=== PATIENT | female | born 2000 | race Caucasian/White ===

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

== ENCOUNTER 2022-01-06 09:17 | Emergency (ER) | payer MEDICAID, SELFPAY ==
[2022-01-06 09:18] VITALS: BP 135/85; PULSE 95; RESP 18; TEMP 36.1; O2SAT 100; BMI 24.2
--- NOTE | 2022-01-06 10:49 | US_ITS ---
STUDY: SECOND AND THIRD TRIMESTER OBSTETRICAL ULTRASOUND REASON FOR EXAM: Female, 21 years old BLEEDING 2nd trimester LMP: 09/15/2021. TECHNIQUE: Transabdominal and Transvaginal TECHNICAL QUALITY: Adequate. PRIOR ULTRASOUND: Comparison is made with prior study of 11/07/2021. FINDINGS: There is a single intrauterine fetus. The fetus is in a cephalic presentation. There is demonstrated cardiac activity with a heart rate of 135 bpm. There is a normal amniotic fluid volume. The largest amniotic fluid pocket measures 4.4 cm x 3.7 cm. The amniotic fluid index (NICHOLAS) is within normal limits. The placenta is fundal and posterior in location. There are Grade 0 placental changes. The cervix measures 4.0 cm in length. The adnexal regions are not visualized. BIOMETRY: BPD: 3.3 cm: 16 weeks, 1 days HC: 11.7 cm: 15 weeks, 5 days AC: 10.04 cm: 16 weeks, 0 days FL: 1.75 cm: 15 weeks, 1 days CI: 85% FL/BPD: 53% FL/HC: FL/AC: 17% HC/AC: 1.17 age by current US: 15 weeks, 4 days. SETH by current US: 06/26/2022. Estimated weight: 133 grams, +/- 20 grams, 18 %. age by prior US: 15 weeks, 3 days. SETH by prior US: 06/27/2022. Age by LMP: 16 weeks, 1 days. SETH by LMP: 06/22/2022. IMPRESSION: Single live uterine gestation with a mean gestational age of 15 weeks and 3 days. The measurements obtained today following within the normal expected range. Electronically Signed: Jonh Tatum MD at 12:18 EDT , STUDY: FIRST TRIMESTER OBSTETRICAL ULTRASOUND REASON FOR EXAM: Female, 21 years old BLEEDING 2nd trimester LMP: 09/15/2021. TECHNIQUE: Transvaginal TECHNICAL QUALITY: Adequate. PRIOR ULTRASOUND: None. FINDINGS: Cervical length measures 4 cm. US/OB Limited With Biometrics IMPRESSION: Cervical length measures 4 cm. Electronically Signed: Jonh Tatum MD at 12:19 EDT ,
--- NOTE | 2022-01-06 10:50 | ED.VIS.FEGU ---
HPI HPI - Female History of Present Illness Chief Complaint: Vag Bld, Preg Informant: patient and parent Narrative Narrative: 21-year-old female G1, P0 at 16 weeks presenting to the emergency department with nausea and vaginal bleeding. Patient notes a headache for the past couple days. She states that she is currently following obstetrically with Dr. Matthew. She states this morning she had dark red bleeding vaginally. She notes some mild abdominal cramping. She states that she has previously had a normal intrauterine . She denies any fevers or vaginal discharge other than blood. She denies any urinary symptoms. No vision changes. No seizures. She describes the headache as frontal in nature. PFSH PFSH Medical History no medical history no medical history Home Medications multivitamin no.47-iron fum 27 mg-folate no.1 1 mg-dha 300 mg capsule (PNV-DHA) cap PO 11/12/21 [History Last Taken Unknown] ondansetron 4 mg disintegrating tablet 4 mg PO Q4H PRN nausea and vomiting #60 tabs 11/18/21 [Rx Last Taken Unknown] promethazine 12.5 mg tablet 12.5 mg PO Q6H PRN nausea and vomiting #30 tabs 11/25/21 [Rx Last Taken Unknown] Allergy/AdvReac Type Severity Reaction Status Date / Time No Known Allergies Allergy Verified 01/06/22 09:17 Surgical History no surgical history no surgical history Social History adopted: No household members: other details: Mother housing: house current occupational status: employed current occupation: [employer] [place] current occupational exposures/hazards: Yes pets and animals: Yes (Not managing litterbox) pets and animals: cat(s) history of recent travel: No sexually active: Yes Smoking Status: Never smoker alcohol intake: never substance use type: does not use well-balanced diet: rarely or never caffeine: No eating out: 4 or more times/week during the past year weight has: decreased > 10 lbs what type of physical activity do you participate in: walking frequency: daily luigi/denominational: Jewish seatbelt use: always do you feel safe at home: Yes additional social history: MARIA C Campbell ROS ROS ED Constitutional Constitutional ED: Denies chills or weight loss Eyes Eyes: Denies change in vision or diplopia ENT ENT ED: Denies ear pain, rhinorrhea or sore throat Cardiovascular Cardiovascular: Denies chest pain, orthopnea, palpitations or racing heartbeat Respiratory/Chest Respiratory/Chest: Denies cough, dyspnea or orthopnea Gastrointestinal Gastrointestinal: Denies abdominal pain, diarrhea, nausea or vomiting Genitourinary Genitourinary ED: Reports other Details: Vaginal bleeding vaginal cramping ; Denies dysuria, hematuria or urinary frequency Musculoskeletal Musculoskeletal: Denies arthralgias or myalgias Integumentary Denies abscess or rash Neurologic Neurologic: Denies headache(s) or weakness Psychiatric Psychiatric: Denies anxiety, depression, suicidal ideation or suicidal thoughts Endocrine Endocrinology: Denies polydipsia, polyphagia or polyuria Allergic/Immunologic Allergic/Immunologic ED: Denies mouth swelling, tongue swelling or urticaria EXAM Physical Exam Const Vital Signs: 01/06/22 09:18 01/06/22 11:22 Temperature 97.0 F L Temperature Source Temporal Pulse Rate 95 Respiratory Rate 18 16 Blood Pressure 135/85 H Blood Pressure Mean 101 Pulse Ox 100 Oxygen Delivery Method Room Air Positive well nourished and well developed General Appearance ED: well developed HEENT Reports normocephalic, head/scalp atraumatic and moist mucous membranes Eyes PERRL and EOMs intact bilaterally Neck no lymphadenopathy, supple and no JVD Resp normal respiratory effort and clear to auscultation bilaterally Cardio regular rate, regular rhythm and no murmurs GI normal to inspection, nondistended, normoactive bowel sounds and non-tender Palpation: soft Back/Spine no CVA tenderness and normal ROM Extremity normal to inspection General Extremety ED: Negative for edema General Extremity: Negative for edema Neuro oriented x3 and CN's II-XII intact bilaterally Sensorium / Orientation: alert Motor Exam: strength 5/5 throughout Psych mental status grossly normal Mood & Affect: Negative for depressed or tearful Skin no rashes or lesions noted and no wounds MDM MDM MDM Narrative Medical decision making narrative: Basic blood work was obtained and was negative. She is positive. Like ultrasound was obtained and shows a single live intrauterine . Urinalysis shows 3+ bacteria 5-10 white cells. She is asymptomatic in this will be sent for culture. This point patient be discharged home on pelvic rest. Instructions to follow-up with primary care return if worsening or concerns Lab Data Attestation: I reviewed the patient's lab results. Labs: Laboratory Results - last 24 hr 01/06/22 01/06/22 01/06/22 11:01 11:01 11:01 WBC 10.9 RBC 4.36 Hgb 13.9 Hct 41.6 MCV 95.4 MCH 31.9 MCHC 33.4 RDW Std Deviation 47.0 H RDW Coeff of Javier 13.4 Plt Count 236 MPV 10.5 Immature Gran % (Auto) 0.500 Neut % (Auto) 69.6 Lymph % (Auto) 22.0 Sherman % (Auto) 5.9 Eos % (Auto) 1.6 Baso % (Auto) 0.4 Absolute Neuts (auto) 7.6 Absolute Lymphs (auto) 2.40 Nucleated RBC % 0 Sodium 139 Potassium 4.4 Chloride 106 Carbon Dioxide 27.0 Anion Gap 6 BUN 6 L Creatinine 0.60 Estim Creat Clear Calc 124.75 Est GFR (MDRD) Af Amer 167 Est GFR (MDRD) Non-Af 138 BUN/Creatinine Ratio 10.1 Glucose 80 Calcium 9.1 Total Bilirubin 0.50 AST 24 ALT 22 Alkaline Phosphatase 65 Total Protein 7.4 Albumin 3.1 L Globulin 4.3 H Albumin/Globulin Ratio 0.7 L Urine Color Urine Clarity Urine pH Ur Specific [place] Urine Protein Urine Glucose (UA) Urine Ketones Urine Occult Blood Urine Nitrite Urine Bilirubin Urine Urobilinogen Ur Leukocyte Esterase Urine RBC Urine WBC Ur Squamous Epith Cells Urine Bacteria Urine Mucus Blood Type O POSITIVE 01/06/22 11:01 WBC RBC Hgb Hct MCV MCH MCHC RDW Std Deviation RDW Coeff of Javier Plt Count MPV Immature Gran % (Auto) Neut % (Auto) Lymph % (Auto) Sherman % (Auto) Eos % (Auto) Baso % (Auto) Absolute Neuts (auto) Absolute Lymphs (auto) Nucleated RBC % Sodium Potassium Chloride Carbon Dioxide Anion Gap BUN Creatinine Estim Creat Clear Calc Est GFR (MDRD) Af Amer Est GFR (MDRD) Non-Af BUN/Creatinine Ratio Glucose Calcium Total Bilirubin AST ALT Alkaline Phosphatase Total Protein Albumin Globulin Albumin/Globulin Ratio Urine Color Yellow Urine Clarity Sl. Cloudy Urine pH 8.0 Ur Specific [place] 1.015 Urine Protein 15 H Urine Glucose (UA) Normal Urine Ketones Negative Urine Occult Blood 50 H Urine Nitrite Negative Urine Bilirubin Negative Urine Urobilinogen Normal Ur Leukocyte Esterase 25 H Urine RBC 0-5 SEEN Urine WBC 5-10 SEEN Ur Squamous Epith Cells 0-5 SEEN Urine Bacteria 3+ Urine Mucus 0 SEEN Blood Type Radiography Diagnostic Testing: Clinical Impression(s) from Imaging Studies Obstetrics Ultrasound 01/06/22 10:49 IMPRESSION: Cervical length measures 4 cm. Electronically Signed: Jonh Tatum MD at 12:19 EDT , Discharge Plan Triage Chief Complaint: Vag Bld, Preg ED Provider: Shahid Hull Dx/Rx/DC Orders Clinical Impression: Vaginal bleeding before 22 weeks gestation, Second trimester Instructions: 2nd Trimester Changes Prescriptions: No Action PNV-DHA 27 mg iron-1 mg -300 mg capsule PO ondansetron 4 mg tablet,disintegrating 4 mg PO Q4H PRN (Reason: nausea and vomiting) Qty: 60 2RF promethazine 12.5 mg tablet 12.5 mg PO Q6H PRN (Reason: nausea and vomiting) Qty: 30 2RF Primary Care Provider: Julianna Thompson Referrals: Julianna Thompson MD [Primary Care Provider] - Activity Restrictions/Additional Instructions: Please follow-up with your braze operator. Disposition Disposition: Home, Self Care
[2022-01-06 11:08] LABS: Absolute Neutrophil Count 7.6 X10^3/uL (2.0-7.7); Basophil# 0.04 X10^3/uL; Basophil% 0.4 % (0-1); Eosinophil# 0.17 X10^3/uL; Eosinophils% 1.6 % (0-5); Hematocrit 41.6 % (37-47); Hemoglobin 13.9 g/dL (12.0-15.0); Mean Corp Hgb Conc 33.4 g/dL (32-36); Mean Corpuscular Hgb 31.9 pg (27.0-32.0); Mean Corpuscular Volume 95.4 fL (81-99); Mean Platelet Vol. 10.5 fl (6.2-12.0); Monocyte# 0.64 X10^3/uL; Monocyte% 5.9 % (0-10); NRBC Flagged by Analyzer 0 % (0-5); Neutrophil # 7.62 X10^3/uL (2.7-7.7); Neutrophil % 69.6 % (47-70); Platelet Count 236 K/mm3 (150-450); RBC Distribution Width CV 13.4 % (11.6-14.6); Red Blood Count 4.36 M/mm3 (4.2-5.4); White Blood Count 10.9 K/mm3 (4.4-11.0)
[2022-01-06 11:09] LABS: Color, Urine Yellow (Yellow); Glucose, Dipstick Normal (Normal); Ketone-Dipstick Negative (Negative); Leukocyte Esterase-Dipstick 25 /ul (Negative); Mucous, Urine 0 SEEN /hpf (<or=2+); Nitrite-Dipstick Negative (Negative); Occult Blood-Urine 50 /ul (Negative); Protein-Dipstick 15 mg/dl (Negative); Specific Gravity, Urine 1.015 (1.002-1.030); Urine Bilirubin Dipstick Negative (Negative); Urine Clarity Sl. Cloudy (Clear); Urine Urobilinogen Normal (Normal)
[2022-01-06 11:15] LABS: Bacteria 3+ /hpf (None Seen); Red Blood Cells-Urine 0-5 SEEN /hpf (0-5); Squamous Epithelial Cells - UA 0-5 SEEN /hpf (5-10); White Blood Cells 5-10 SEEN /hpf (0-5)
[2022-01-06 11:22] VITALS: RESP 16
[2022-01-06 11:35] LABS: ALB/GLOB Ratio 0.7 RATIO (0.9-2.4); AST(SGOT) 24 U/L (15-37); Alanine Aminotransfer ALT/SGPT 22 U/L (13-56); Albumin, Serum 3.1 g/dL (3.2-5.0); Alkaline Phosphatase 65 U/L (45-117); Anion Gap 6 (5-15); BUN 6 mg/dL (7-18); BUN/Creat Ratio 10.1 RATIO (10-20); Calcium,Total 9.1 mg/dL (8.5-10.1); Chloride 106 mmol/L (98-107); EST Glomerular Filtration Rate 138 mL/min (>60); Est Glom Filt Rate - Afr Amer 167 mL/min (>60); Estimated Creatinine Clearance 124.75 ml/min; Globulin 4.3 g/dL (2.2-4.2); Glucose 80 mg/dL (74-106); Potassium 4.4 mmol/L (3.5-5.1); Protein, Total 7.4 g/dL (6.4-8.2); Sodium Level 139 mmol/L (136-145)
== END 2022-01-06 12:59 | disposition home or self-care (01) ==
PROVIDERS: Emergency Provider Emergency Medicine; PCP Pediatrics; Visit Provider Emergency Medicine
DX: O20.9 Hemorrhage in early pregnancy, unspecified (principal); O99.891 Other specified diseases and conditions complicating pregnancy; R11.0 Nausea; Z3A.16 16 weeks gestation of pregnancy
CPT/HCPCS: 76816; 76817; 80053; 81001; 85025; 86900; 86901; 87086; 87088; 99282; A4216

== ENCOUNTER 2022-01-10 22:57 | Emergency (ER) | payer MEDICAID, SELFPAY ==
[2022-01-10 22:57] VITALS: BP 114/70; BP 131/70; PULSE 70; PULSE 88; RESP 16; RESP 21; TEMP 36.6; O2SAT 98; BMI 23.0
--- NOTE | 2022-01-10 23:34 | EKG12_ITS ---
Test Reason : DYSRHYTHMIA Blood Pressure : / mmHG Vent. Rate : 077 BPM Atrial Rate : 077 BPM P-R Int : 126 ms QRS Dur : 092 ms QT Int : 384 ms P-R-T Axes : 027 027 043 degrees QTc Int : 434 ms Normal sinus rhythm Normal ECG Confirmed by BHUPINDER HASKINS, SADE ([id number]), newspaper or periodical editor KIM JIMENEZ ([id number]) on 01/12/2022 9:33:51 AM Referred By: PL Confirmed By:SADE ROE MD
--- NOTE | 2022-01-10 23:37 | EX.ED.DYSGE1 ---
HPI History of Present Illness Chief Complaint: Alt LOC Informant: patient, spouse/S.O. and friend Narrative Narrative: History is from patient significant other and friend. Evidently patient was out of the bonfire type event this evening. She seemed to be staring into space. Her boyfriend tapped her. She then leaned forward fell onto the ground and curled up in a ball and was real tight. It does not sound like she had tonic-clonic activity but was just curled up in a ball tightly. She would then relax. She would answer simple questions and go back into this. She did this several times. She now just feels tired. She denies injury. She evidently has had these episodes since she was 9 years old. They occur probably at least twice a month or more. It sounds like she has had evaluation by neurology in the past but she does not remember any details. She was due to have a neurology appointment not long ago but it was canceled when they found out she was . She has never actually been diagnosed with seizures or seizure meds. Her significant other has been with her for 7 months. He states he has had her in the ER at least a dozen times for this with no answers. She has had multiple images done at other hospitals. Other than being tired she feels back to baseline. She is not having lower abdominal pain. She had some spotting before and was seen recently but is not having that now. No headaches now. PFSH PFSH Home Medications multivitamin no.47-iron fum 27 mg-folate no.1 1 mg-dha 300 mg capsule (PNV-DHA) cap PO 11/12/21 [History Last Taken Unknown] ondansetron 4 mg disintegrating tablet 4 mg PO Q4H PRN nausea and vomiting #60 tabs 11/18/21 [Rx Last Taken Unknown] promethazine 12.5 mg tablet 12.5 mg PO Q6H PRN nausea and vomiting #30 tabs 11/25/21 [Rx Last Taken Unknown] Allergy/AdvReac Type Severity Reaction Status Date / Time No Known Allergies Allergy Verified 01/10/22 23:00 Social History adopted: No household members: other details: Mother housing: house current occupational status: employed current occupation: [employer] current occupational exposures/hazards: Yes pets and animals: Yes (Not managing litterbox) pets and animals: cat(s) history of recent travel: No sexually active: Yes Smoking Status: Never smoker alcohol intake: never substance use type: does not use well-balanced diet: rarely or never caffeine: No eating out: 4 or more times/week during the past year weight has: decreased > 10 lbs what type of physical activity do you participate in: walking frequency: daily luigi/scientologist: Jehovah'S Witness seatbelt use: always do you feel safe at home: Yes additional social history: MARIA C Campbell ROS ROS ED Constitutional Constitutional ED: Denies chills or fever(s) Eyes Eyes: Denies change in vision or diplopia ENT ENT ED: Denies rhinorrhea or sore throat Cardiovascular Cardiovascular: Denies chest pain or palpitations Respiratory/Chest Respiratory/Chest: Denies cough or dyspnea Gastrointestinal Gastrointestinal: Denies abdominal pain, nausea or vomiting Genitourinary Genitourinary ED: Denies dysuria or hematuria Musculoskeletal Musculoskeletal: Denies myalgias Integumentary Denies rash Neurologic Neurologic: Reports other Details: See history of present illness. ; Denies headache(s) Psychiatric Psychiatric: Reports anxiety Endocrine Endocrinology: Denies polydipsia or polyuria Hematologic/Lymphatic Hematologic/Lymphatic: Denies easy bleeding or easy bruising Allergic/Immunologic Allergic/Immunologic ED: Denies urticaria EXAM Physical Exam Const Vital Signs: 01/10/22 22:57 01/10/22 22:57 01/11/22 00:31 Temperature 97.8 F Temperature Source Temporal Pulse Rate 88 70 Respiratory Rate 16 21 H Respiratory Effort Normal Non-Labored Respiratory Pattern Normal Blood Pressure 131/70 H 114/70 Blood Pressure Mean 90 84 Pulse Ox 98 98 Oxygen Delivery Method Room Air Room Air 01/11/22 00:48 Temperature Temperature Source Pulse Rate 74 Respiratory Rate 17 Respiratory Effort Respiratory Pattern Blood Pressure 113/76 Blood Pressure Mean 88 Pulse Ox 96 Oxygen Delivery Method Room Air Positive well nourished and well developed General Appearance ED: well developed and NAD; Negative for pallor HEENT Reports moist mucous membranes Eyes PERRL and EOMs intact bilaterally General Eye ED: Negative for pale conjunctiva or scleral icterus Neck no lymphadenopathy Chest Wall inspection of chest normal Resp normal respiratory effort and clear to auscultation bilaterally Cardio regular rate, regular rhythm and no murmurs GI normal to inspection, nondistended, normoactive bowel sounds and non-tender Back/Spine no CVA tenderness Extremity normal to inspection General Extremety ED: Negative for edema or tenderness General Extremity: Negative for edema Neuro oriented x3, CN's II-XII intact bilaterally and no sensory deficits noted Neuro Narrative: Normal reflexes. Sensorium / Orientation: alert; Negative for orientation impaired, lethargic or stuporous Sensory Exam: No sensory level loss detected Motor Exam: strength 5/5 throughout; Negative for general weakness or strength abnormal Psych mental status grossly normal Skin no rashes or lesions noted General Skin Exam: Negative for jaundice or pallor MDM MDM MDM Narrative Medical decision making narrative: Patient CBC shows no marked abnormalities. Urine shows no sign of infection. Tox is negative alcohol is negative electrolytes are normal. Liver function test show no acute abnormalities. Lactate is just at high end of normal. Patient's recheck. She is asymptomatic. She has had these symptoms for about 12 years. She has them a couple times or so a month. This is resolved. Neurology follow-up is appropriate. She has a neurologist to see but they want to wait until after she has delivered. We discussed reasons to return. Lab Data Attestation: I reviewed the patient's lab results. Labs: Laboratory Results - last 24 hr 01/10/22 01/10/22 01/10/22 00:20 00:20 23:57 WBC 10.6 RBC 3.95 L Hgb 12.6 Hct 36.5 L MCV 92.4 MCH 31.9 MCHC 34.5 RDW Std Deviation 44.9 H RDW Coeff of Javier 13.3 Plt Count 203 MPV 10.0 Immature Gran % (Auto) 0.400 Neut % (Auto) 62.1 Lymph % (Auto) 26.2 Becker % (Auto) 9.0 Eos % (Auto) 1.8 Baso % (Auto) 0.5 Absolute Neuts (auto) 6.6 Absolute Lymphs (auto) 2.77 Nucleated RBC % 0 Sodium Potassium Chloride Carbon Dioxide Anion Gap BUN Creatinine Estim Creat Clear Calc Est GFR (MDRD) Af Amer Est GFR (MDRD) Non-Af BUN/Creatinine Ratio Glucose Lactic Acid Calcium Magnesium Total Bilirubin AST ALT Alkaline Phosphatase Total Protein Albumin Globulin Albumin/Globulin Ratio Urine Color Yellow Urine Clarity Clear Urine pH 7.0 Ur Specific [place] 1.015 Urine Protein Negative Urine Glucose (UA) Normal Urine Ketones Negative Urine Occult Blood Negative Urine Nitrite Negative Urine Bilirubin Negative Urine Urobilinogen Normal Ur Leukocyte Esterase 100 H Urine RBC 0 SEEN Urine WBC 0-5 SEEN Ur Squamous Epith Cells 0 SEEN Amorphous Sediment 2+ Urine Bacteria 1+ Urine Mucus 0 SEEN Urine Opiates Screen NEGATIVE Urine Methadone Screen NEGATIVE Ur Barbiturates Screen NEGATIVE Ur Phencyclidine Scrn NEGATIVE Ur Amphetamines Screen NEGATIVE MDMA (Ecstasy) Screen NEGATIVE U Benzodiazepines Scrn NEGATIVE Urine Cocaine Screen NEGATIVE U Cannabinoids Screen NEGATIVE Ur Drug Screen Comment Ethyl Alcohol 01/10/22 01/10/22 01/10/22 23:57 23:57 23:57 WBC RBC Hgb Hct MCV MCH MCHC RDW Std Deviation RDW Coeff of Javier Plt Count MPV Immature Gran % (Auto) Neut % (Auto) Lymph % (Auto) [place] % (Auto) Eos % (Auto) Baso % (Auto) Absolute Neuts (auto) Absolute Lymphs (auto) Nucleated RBC % Sodium 140 Potassium 3.4 L Chloride 108 H Carbon Dioxide 27.0 Anion Gap 5 BUN 10 Creatinine 0.50 L Estim Creat Clear Calc 149.70 Est GFR (MDRD) Af Amer 202 Est GFR (MDRD) Non-Af 167 BUN/Creatinine Ratio 19.9 Glucose 92 Lactic Acid 2.0 Calcium 8.6 Magnesium 1.8 Total Bilirubin 0.30 AST 11 L ALT 15 Alkaline Phosphatase 65 Total Protein 6.5 Albumin 2.8 L Globulin 3.7 Albumin/Globulin Ratio 0.8 L Urine Color Urine Clarity Urine pH Ur Specific [place] Urine Protein Urine Glucose (UA) Urine Ketones Urine Occult Blood Urine Nitrite Urine Bilirubin Urine Urobilinogen Ur Leukocyte Esterase Urine RBC Urine WBC Ur Squamous Epith Cells Amorphous Sediment Urine Bacteria Urine Mucus Urine Opiates Screen Urine Methadone Screen Ur Barbiturates Screen Ur Phencyclidine Scrn Ur Amphetamines Screen MDMA (Ecstasy) Screen U Benzodiazepines Scrn Urine Cocaine Screen U Cannabinoids Screen Ur Drug Screen Comment Ethyl Alcohol < 3.0 EKG Initial EKG: Comments: EKG done for possible syncopal episode read by me shows a normal sinus rhythm with overall rate of 77. No ectopy noted. No acute ST elevation or depression. ND interval, QRS duration and QTc normal. Discharge Plan Triage Chief Complaint: Alt LOC ED Provider: Bubba Schwab Dx/Rx/DC Orders Clinical Impression: Transient alteration of awareness Instructions: ED ALOC Prescriptions: No Action PNV-DHA 27 mg iron-1 mg -300 mg capsule PO ondansetron 4 mg tablet,disintegrating 4 mg PO Q4H PRN (Reason: nausea and vomiting) Qty: 60 2RF promethazine 12.5 mg tablet 12.5 mg PO Q6H PRN (Reason: nausea and vomiting) Qty: 30 2RF Primary Care Provider: Julianna Thompson Referrals: Julianna Thompson MD [Primary Care Provider] - As Needed Disposition Disposition: Home, Self Care
[2022-01-11 00:07] LABS: Absolute Lymphocyte Count 2.77 X10^3/uL (0.83-4.51); Absolute Neutrophil Count 6.6 X10^3/uL (2.0-7.7); Basophil# 0.05 X10^3/uL; Basophil% 0.5 % (0-1); Eosinophil# 0.19 X10^3/uL; Eosinophils% 1.8 % (0-5); Hematocrit 36.5 % (37-47); Hemoglobin 12.6 g/dL (12.0-15.0); Lymphocyte # 2.77 X10^3/ul (0.83-4.51); Lymphocyte % 26.2 % (19-41); Mean Corp Hgb Conc 34.5 g/dL (32-36); Mean Corpuscular Hgb 31.9 pg (27.0-32.0); Mean Corpuscular Volume 92.4 fL (81-99); Monocyte# 0.95 X10^3/uL; NRBC Flagged by Analyzer 0 % (0-5); Neutrophil # 6.58 X10^3/uL (2.7-7.7); Neutrophil % 62.1 % (47-70); Platelet Count 203 K/mm3 (150-450); RBC Distribution Width CV 13.3 % (11.6-14.6); RBC Distribution Width SD 44.9 fl (35.1-43.9); Red Blood Count 3.95 M/mm3 (4.2-5.4); White Blood Count 10.6 K/mm3 (4.4-11.0)
[2022-01-11 00:26] LABS: Mucous, Urine 0 SEEN /hpf (<or=2+); Red Blood Cells-Urine 0 SEEN /hpf (0-5); Squamous Epithelial Cells - UA 0 SEEN /hpf (5-10)
[2022-01-11 00:32] LABS: Color, Urine Yellow (Yellow); Glucose, Dipstick Normal (Normal); Ketone-Dipstick Negative (Negative); Leukocyte Esterase-Dipstick 100 /ul (Negative); Nitrite-Dipstick Negative (Negative); Occult Blood-Urine Negative /ul (Negative); Protein-Dipstick Negative (Negative); Specific Gravity, Urine 1.015 (1.002-1.030); Urine Bilirubin Dipstick Negative (Negative); Urine Clarity Clear (Clear); Urine Urobilinogen Normal (Normal)
[2022-01-11 00:38] LABS: ALB/GLOB Ratio 0.8 RATIO (0.9-2.4); AST(SGOT) 11 U/L (15-37); Alanine Aminotransfer ALT/SGPT 15 U/L (13-56); Albumin, Serum 2.8 g/dL (3.2-5.0); Alkaline Phosphatase 65 U/L (45-117); Anion Gap 5 (5-15); BUN 10 mg/dL (7-18); BUN/Creat Ratio 19.9 RATIO (10-20); Calcium,Total 8.6 mg/dL (8.5-10.1); Chloride 108 mmol/L (98-107); EST Glomerular Filtration Rate 167 mL/min (>60); Est Glom Filt Rate - Afr Amer 202 mL/min (>60); Globulin 3.7 g/dL (2.2-4.2); Glucose 92 mg/dL (74-106); Magnesium 1.8 mg/dL (1.6-2.6); Potassium 3.4 mmol/L (3.5-5.1); Protein, Total 6.5 g/dL (6.4-8.2); Sodium Level 140 mmol/L (136-145)
[2022-01-11 00:41] LABS: Alcohol, Blood (Medical)-Serum < 3.0 mg/dL
[2022-01-11 00:48] VITALS: BP 113/76; PULSE 74; RESP 17; O2SAT 96
[2022-01-11 00:57] LABS: Amorphous Sediment 2+; Bacteria 1+ /hpf (None Seen); White Blood Cells 0-5 SEEN /hpf (0-5)
[2022-01-11 01:04] LABS: Amphetamine Urine VISTA NEGATIVE (<1000 ng/mL); Barbiturate Urine VISTA NEGATIVE (< 200 ng/mL); Benzodiazepine Urine VISTA NEGATIVE (< 200 ng/mL); Cocaine Urine VISTA NEGATIVE (< 300 ng/mL); Ecstacy Urine VISTA NEGATIVE (< 500 ng/mL); Methadone Urine VISTA NEGATIVE (< 300 ng/mL); PCP Urine VISTA NEGATIVE (< 25 ng/mL); THC Urine VISTA NEGATIVE (< 50 ng/mL); Vista UDS pH Range 7
[2022-01-11 01:42] VITALS: BP 103/63; PULSE 59; RESP 18; O2SAT 100
[2022-01-11 04:04] LABS: Reflex Lactate? Y
== END 2022-01-11 01:43 | disposition home or self-care (01) ==
PROVIDERS: Emergency Provider Emergency Medicine; PCP Pediatrics; Visit Provider Emergency Medicine
DX: R40.4 Transient alteration of awareness (principal)
CPT/HCPCS: 80053; 80307; 81001; 82077; 83605; 83735; 85025; 93005; 99285; A4216

== ENCOUNTER → 2022-03-03 | Outpatient (CLI) | payer MEDICAID, SELFPAY | END | disposition home or self-care (01) | LOC: LABSPEC 16:37 | PROVIDERS: PCP Pediatrics; Visit Provider Nurse Practitioner Women's Health | DX: R39.9 Unspecified symptoms and signs involving the genitourinary system (principal) | CPT/HCPCS: 87086 ==

== ENCOUNTER → 2022-03-23 | Outpatient (CLI) | payer MEDICAID, SELFPAY ==
[2022-03-23 09:51] LABS: Absolute Lymphocyte Count 2.59 X10^3/uL (0.83-4.51); Absolute Neutrophil Count 8.6 X10^3/uL (2.0-7.7); Basophil# 0.05 X10^3/uL; Basophil% 0.4 % (0-1); Eosinophil# 0.22 X10^3/uL; Eosinophils% 1.7 % (0-5); Hematocrit 37.4 % (37-47); Hemoglobin 13.1 g/dL (12.0-15.0); Lymphocyte # 2.59 X10^3/ul (0.83-4.51); Lymphocyte % 20.6 % (19-41); Mean Corpuscular Hgb 33.4 pg (27.0-32.0); Mean Corpuscular Volume 95.4 fL (81-99); Mean Platelet Vol. 9.8 fl (6.2-12.0); Monocyte% 7.9 % (0-10); NRBC Flagged by Analyzer 0 % (0-5); Neutrophil # 8.63 X10^3/uL (2.7-7.7); Neutrophil % 68.5 % (47-70); Platelet Count 212 K/mm3 (150-450); RBC Distribution Width CV 12.4 % (11.6-14.6); Red Blood Count 3.92 M/mm3 (4.2-5.4); White Blood Count 12.6 K/mm3 (4.4-11.0)
[2022-03-23 09:53] LABS: Glucose Challenge Gest 1H 50g 92 mg/dL (70-140)
[2022-03-23 10:36] LABS: HIV - WCH Non-Reactive (Nonreactive); Syphilis Antibodies Non-reactive
== END | disposition home or self-care (01) ==
LOC: PAVLAB 09:13
PROVIDERS: PCP Pediatrics; Referring Provider Obstetrics & Gynecology; Visit Provider Obstetrics & Gynecology
DX: Z34.02 Encounter for supervision of normal first pregnancy, second trimester (principal)
CPT/HCPCS: 36415; 82950; 85025; 86703; 86780

== ENCOUNTER → 2022-05-27 | Outpatient (CLI) | payer MEDICAID, SELFPAY ==
[2022-05-27 16:26] LABS: Group B Strep DNA By PCR Negative (Negative); Internal Control PASS; Probe Check PASS; Specimen Processing Control PASS
== END | disposition home or self-care (01) ==
LOC: LABSPEC 15:11
PROVIDERS: Referring Provider Nurse Practitioner Women's Health; Visit Provider Nurse Practitioner Women's Health
DX: Z34.90 Encounter for supervision of normal pregnancy, unspecified, unspecified trimester (principal)
CPT/HCPCS: 87081; 87653

== ENCOUNTER 2022-05-28 23:09 | Inpatient (IN) | payer MEDICAID, SELFPAY ==
[2022-05-28 19:23] VITALS: BMI 31.8
[2022-05-28 19:32] VITALS: TEMP 37.5
[2022-05-28 19:34] VITALS: O2SAT 97
[2022-05-28 19:35] VITALS: BP 146/88; PULSE 77
[2022-05-28 20:10] VITALS: BP 132/81; PULSE 75
[2022-05-28 20:12] LABS: ROM Internal Control Test YES-OK TO RESULT pt. (Internal QC); ROM Patient Test Negative (Negative)
[2022-05-28 20:16] LABS: Mucous, Urine 0 SEEN /hpf (<or=2+); White Blood Cells 0 SEEN /hpf (0-5)
[2022-05-28 20:17] LABS: Color, Urine Yellow (Yellow); Glucose, Dipstick Normal (Normal); Ketone-Dipstick 5 mg/dl (Negative); Leukocyte Esterase-Dipstick 25 /ul (Negative); Nitrite-Dipstick Negative (Negative); Occult Blood-Urine 50 /ul (Negative); Protein-Dipstick 15 mg/dl (Negative); Specific Gravity, Urine 1.015 (1.002-1.030); Urine Bilirubin Dipstick Negative (Negative); Urine Clarity Clear (Clear); Urine Urobilinogen Normal (Normal); Urine pH 6.5 (5.0 - 8.0)
[2022-05-28 20:24] LABS: Red Blood Cells-Urine 0-5 SEEN /hpf (0-5); Squamous Epithelial Cells - UA 0-5 SEEN /hpf (5-10)
[2022-05-28 20:25] LABS: Bacteria RARE /hpf (None Seen)
[2022-05-28 20:26] VITALS: BP 124/74; PULSE 76
[2022-05-28 20:40] VITALS: BP 134/82; PULSE 71
[2022-05-28] MEDS: 0.9% Saline Lock 10 ML Syringe IV (20:55)
[2022-05-28 21:09] LABS: Hematocrit 35.5 % (37-47); Hemoglobin 12.1 g/dL (12.0-15.0); Mean Corp Hgb Conc 34.1 g/dL (32-36); Mean Corpuscular Hgb 30.3 pg (27.0-32.0); Mean Platelet Vol. 11.1 fl (6.2-12.0); Platelet Count 187 K/mm3 (150-450); RBC Distribution Width CV 12.2 % (11.6-14.6); RBC Distribution Width SD 39.3 fl (35.1-43.9); Red Blood Count 3.99 M/mm3 (4.2-5.4); White Blood Count 11.2 K/mm3 (4.4-11.0)
[2022-05-28 21:37] LABS: Protein, Urine (Random) 19.6 mg/dL (<11.9); Protein:Creat Ratio 181 mg/g CRE (0-200)
[2022-05-28 21:43] LABS: AST(SGOT) 17 U/L (15-37); Alanine Aminotransfer ALT/SGPT 18 U/L (13-56); Creatinine, Serum 0.64 mg/dL (0.55-1.02); EST Glomerular Filtration Rate 126 mL/min (>60); Est Glom Filt Rate - Afr Amer 153 mL/min (>60); Estimated Creatinine Clearance 116.96 ml/min; Uric Acid 5.7 mg/dL (2.6-6.0)
[2022-05-28] MEDS: Sodium Citrate/Citric Acid 30 ML UDC PO (22:12)
[2022-05-28] MEDS: Lactated Ringers 1,000 ML 999 ML IV (22:13)
[2022-05-28] MEDS: Lactated Ringers 1,000 ML 200 ML IV (23:41)
[2022-05-29] VITALS (61 sets, daily range): BP systolic 95–157; BP diastolic 51–99; PULSE 67–122; TEMP 36.4–37.3; O2SAT 84–100
--- NOTE | 2022-05-29 00:41 | NURSING ---
per pt report she has vasovagal and is triggered by anxiety, stress, and emotional situations. pt states she is supposed to practice seizure precautions at home as her doctors are trying to rule out seizures versus a vasovagal response. pt states she does not drive due to this. pt is not currently on seizure medications and states she is supposed to follow up with a undercover cop. seizure pads placed to pts bed.
[2022-05-29] MEDS: LACTATED RINGERS 500 ML 999 ML IV ×2 (00:58→14:56)
--- NOTE | 2022-05-29 02:01 | NURSING ---
during epidural placement pt told nursing staff she is currently living in [place] with RASHEED Guido and his mother. She stated there's a lot going on there that is kind of hard to explain so I may be going to live with my mom after Katy is born
[2022-05-29] MEDS: fentaNYL-bupivacaine (epidural) 100 ML BAG EPIDURAL ×4 (02:05→15:45)
[2022-05-29] MEDS: Mag Hydrox/Al Hydrox/Simeth 30 ML UDC PO ×2 (02:25→07:32)
[2022-05-29] MEDS: Ondansetron 4 MG/2 ML Vial IV ×3 (03:42→18:58)
[2022-05-29] MEDS: Lactated Ringers 1,000 ML 200 ML IV ×3 (05:41→17:49)
--- NOTE | 2022-05-29 07:03 | HP.PCM.OB_ITS ---
HPI - General General Date of Admission: 05/28/22 HPI Narrative MUNA ARORA, is a 21 F who presents IAL with contractions. she made change to with a bulging bag. she had a rapid gbs that was negative but the culture was still pending. Maternal Data Information SETH Calculator Estimated Delivery Date Method Current WG Current Estimate 06/23/22 LMP (Certain) 36w 3d PFSH PFS Medical History (Updated 05/29/22 @ 07:[address] Sonal Matthew MD) Anxiety Home Medications multivitamin no.47-iron fum 27 mg-folate no.1 1 mg-dha 300 mg capsule (PNV-DHA) cap PO 11/12/21 [History Last Taken Unknown] Allergy/AdvReac Type Severity Reaction Status Date / Time No Known Allergies Allergy Verified 05/27/22 13:09 Social History adopted: No household members: other details: Mother housing: house current occupational status: employed current occupation: [employer] current occupational exposures/hazards: Yes pets and animals: Yes (Not managing litterbox) pets and animals: cat(s) history of recent travel: No sexually active: Yes Smoking Status: Never smoker alcohol intake: never substance use type: does not use well-balanced diet: rarely or never caffeine: No eating out: 4 or more times/week during the past year weight has: decreased > 10 lbs what type of physical activity do you participate in: walking frequency: daily luigi/judaism: Restorationist seatbelt use: always do you feel safe at home: Yes additional social history: BF Glory Campbell History 1 Elective abortions Hx Para 0 Spontaneous abortions Hx # Term Pregnancies Ectopic pregnancies Hx # Pregnancies Multiple births # of living children Visit Details Expected Delivery Route/Plan Labor Preferences- CB/BF classes: no labor support person: glory labor intervention preferences: [] pain management options preferred: epidural if needed cut cord/dad catch: yes : yes PP control planned: discussed discussed possible routes of delivery and associated risks: [] special requests: [] Plans Covid status: discussed Flu vaccine: discussed Tdap vaccine: declines Rhogam: na LARC form signed: yes Problem list reviewed and updated with the most current plan of care details and appropriate orders placed. Relevant counseling for the gestational age provided. Continue routine care and follow up unless otherwise noted in visit notes/problem list details OB Flowsheet Initial Weight: Not Recorded Date -?-?-?-?-?-?-?-?-?-?-?-?- EGA Weight BP Urine Prot -?-?-?-?-?-?-?-?-?-?-?-?- Glucose FHR FuHt Pres Dilation -?-?-?-?-?-?-?-?-?-?-?-?- Effaced St Visit Note 11/20/21 -?-?-?-?-?-?-?-?-?-?-?-?- 9w 2d 142 lb 120/80 -?-?-?-?-?-?-?-?-?-?-?-?- 165 -?-?-?-?-?-?-?-?-?-?-?-?- SM- CRL 2.26cm c ons with LMP 12/12/21 -?-?-?-?-?-?-?-?-?-?-?-?- 12w 3d 134 lb Negative -?-?-?-?-?-?-?-?-?-?-?-?- Negative 150 -?-?-?-?-?--?-?-?-?-?-?-?- SM- no vb crampi ng 12/31/21 -?-?-?-?-?-?-?-?-?-?-?-?- 15w 1d 138 lb 8 oz 118/76 Nega tive -?-?-?-?-?-?-?-?-?-?-?-?- Negative 143 -?-?-?-?-?-?-?-?-?-?-?-?- LC- no vb/crampi ng. started macrobid for UTI yesterday. afp offered and accepted. anatomy scan ordered. 01/07/22 -?-?-?-?-?-?-?-?-?-?-?--?- 16w 1d 137 lb 8 oz 120/75 -?-?-?-?-?-?-?-?-?-?-?-?- 145 -?-?-?-?-?-?-?-?-?-?-?-?- JV- pt still bl eeding, and was seen in ER last night. ultrasound was normal. normal cL and no sigh of CAM[place]. on exam there is dark blood present but also a small amount of blood and mucous is seen in the os. pt encouraged to practice pelvic rest. return in 2 weeks. formal scan ordered. 01/28/22 -?-?-?-?-?-?-?-?-?-?-?-?- 19w 1d 140 lb 8 oz 108/70 Nega tive -?-?-?-?-?-?-?-?-?-?-?-?- Negative 147 -?-?-?-?-?-?-?-?-?-?-?-?- -no VB, jamey ng. Seen 01/23 [facility] + UTI. See problem list. 02/25/22 -?-?-?-?-?-?-?-?-?-?-?-?- w 1d 152 lb 4 oz 113/75 Nega tive -?-?-?-?-?-?-?-?-?-?-?-?- Negative 132 -?-?-?-?-?-?-?-?-?-?-?-?- -No Vb, LOF. G ood FM. Sees neuro next week for EEG. No concerns today 03/03/22 -?-?-?-?-?-?-?-?-?-?-?-?- 24w 0d 157 lb 6 oz 130/80 Nega tive -?-?-?-?-?-?-?-?-?-?-?-?- Negative -?-?-?-?-?-?-?-?-?-?-?-?- -Nurse visit f or symptomatic UTI. Rx sent, culture pending 03/23/22 -?-?-?-?-?-?-?-?-?-?-?-?- w 6d 162 lb 6.4 oz 129/67 Ne gative -?-?-?-?-?-?-?-?-?-?-?-?- Negative 140 26 -?-?-?-?-?-?-?-?-?-?-?-?- LC- no lof/vb/ct x. good fm. fungal rash under breast. miconazole cream rx sent. to start on Tums for heartburn. add pepcid if needed. 28 week labs normal. 04/20/22 -?-?-?-?-?-?-?-?-?-?-?-?- 30w 6d 168 lb 6 oz 133/77 Nega tive -?-?-?-?-?-?-?-?-?-?-?-?- Negative 140 30 2 -?-?-?-?-?-?-?-?-?-?-?-?- 60 -3 SM- no vb lof good fm irregular ctx- seen for PTL in [place] last week, got steroids. 05/04/22 -?-?-?-?-?-?-?-?-?-?-?-?- 32w 6d 171 lb 109/73 Negative -?-?-?-?-?-?-?-?-?-?-?-?- Negative 150 32 -?-?-?-?-?-?-?-?-?-?-?-?- SM- no vb lof go od fm irreuglar ctx larc signed 05/20/22 -?-?-?-?-?-?-?-?-?-?-?-?- 35w 1d 176 lb 8 oz 113/72 Nega tive -?-?-?-?-?-?-?-?-?-?-?-?- Negative 147 34 -?-?-?-?-?-?-?-?-?-?-?-?- JV- no lof vagin al bleeding, or dec fm. return one week. 05/27/22 -?-?-?-?-?-?-?-?-?-?-?-?- 36w 1d 181 lb 2 oz 102/74 Nega tive -?-?-?-?-?-?-?-?-?-?-?-?- Negative 126 36 2 -?-?-?-?-?-?-?-?-?-?-?-?- 60 -3 MH-No Vb, LOF or CTX. Good Fm. GBS. 05/28/22 -?-?-?-?-?-?-?-?-?-?-?-?- 36w 2d 179 lb 14.355 oz 146 /88 132/81 124/74 134/82 142/79 157/99 137/79 119/63 116/59 105/51 107/56 106/55 95/56 121/56 112/64 106/56 119/59 117/68 109/67 15 mg/dl (Negative) H -?-?-?-?-?-?-?-?-?-?-?-?- -?-?-?-?-?-?-?-?-?-?-?-?- NST FHR Rate Baby A Baseline: 140 Variability:: Moderate Accelerations:: 15 x 15 Decelerations:: None NST Reactive:: Yes FHR Category:: Category I Uterine Activity:: q3-5 ROS Constitutional Constitutional: Reports systems reviewed and no addt'l complaints, except as documented ENT HEENT: Reports systems reviewed and no addt'l complaints, except as documented Cardiovascular Cardiovascular: Reports systems reviewed and no addt'l complaints, except as documented Respiratory/Chest Respiratory/Chest: Reports systems reviewed and no addt'l complaints, except as documented Gastrointestinal Gastrointestinal: Reports systems reviewed and no addt'l complaints, except as documented and nausea; Denies abdominal pain Genitourinary Genitourinary: Reports systems reviewed and no addt'l complaints, except as documented, contractions Details: present and frequency (regular ) and movement Details: present Musculoskeletal Musculoskeletal: Reports systems reviewed and no addt'l complaints, except as documented Integumentary Integumentary: Reports as per HPI Neurologic Neurologic: Reports systems reviewed and no addt'l complaints, except as documented Endocrine Endocrinology: Reports systems reviewed and no addt'l complaints, except as documented Vital Signs Vital Signs Vital Signs: 05/28/22 19:35 05/28/22 19:35 05/28/22 19:34 Temperature Temperature Source Pulse Rate 77 Blood Pressure 146/88 H BP Systolic 146 BP Diastolic 88 Pulse Ox 97 05/28/22 19:32 05/28/22 19:32 05/28/22 20:10 Temperature 99.5 F H Temperature Source Temporal Pulse Rate Blood Pressure 132/81 H BP Systolic 132 BP Diastolic 81 Pulse Ox 05/28/22 20:10 05/28/22 20:26 05/28/22 20:26 Temperature Temperature Source Pulse Rate 75 76 Blood Pressure 124/74 H BP Systolic 124 BP Diastolic 74 Pulse Ox 05/28/22 20:40 05/28/22 20:40 05/29/22 00:05 Temperature Temperature Source Pulse Rate 71 Blood Pressure 134/82 H 142/79 H BP Systolic 134 142 BP Diastolic 82 79 Pulse Ox 05/29/22 00:05 05/29/22 00:05 05/29/22 00:05 Temperature Temperature Source Temporal Pulse Rate 77 80 Blood Pressure BP Systolic BP Diastolic Pulse Ox 05/29/22 00:05 05/29/22 00:05 05/29/22 01:36 Temperature 99.1 F Temperature Source Pulse Rate 99 Blood Pressure BP Systolic BP Diastolic Pulse Ox 97 05/29/22 01:36 05/29/22 01:37 05/29/22 01:37 Temperature Temperature Source Pulse Rate 87 Blood Pressure 157/99 H BP Systolic 157 BP Diastolic 99 Pulse Ox 98 05/29/22 01:41 05/29/22 01:41 05/29/22 01:46 Temperature Temperature Source Pulse Rate 100 113 H Blood Pressure BP Systolic BP Diastolic Pulse Ox 99 05/29/22 01:46 05/29/22 01:52 05/29/22 01:51 Temperature Temperature Source Pulse Rate 91 Blood Pressure 137/79 H BP Systolic 137 BP Diastolic 79 Pulse Ox 98 05/29/22 01:51 05/29/22 01:52 05/29/22 01:57 Temperature Temperature Source Pulse Rate 91 Blood Pressure 119/63 BP Systolic 119 BP Diastolic 63 Pulse Ox 98 05/29/22 01:57 05/29/22 01:56 05/29/22 02:01 Temperature Temperature Source Pulse Rate 80 82 Blood Pressure BP Systolic BP Diastolic Pulse Ox 98 05/29/22 02:01 05/29/22 02:02 05/29/22 02:02 Temperature Temperature Source Pulse Rate 78 Blood Pressure 116/59 L BP Systolic 116 BP Diastolic 59 Pulse Ox 98 05/29/22 02:06 05/29/22 02:06 05/29/22 02:07 Temperature Temperature Source Temporal Pulse Rate 75 Blood Pressure BP Systolic BP Diastolic Pulse Ox 98 05/29/22 02:07 05/29/22 02:08 05/29/22 02:08 Temperature 98.3 F Temperature Source Pulse Rate 75 Blood Pressure 105/51 L BP Systolic 105 BP Diastolic 51 Pulse Ox 05/29/22 02:12 05/29/22 02:12 05/29/22 02:11 Temperature Temperature Source Pulse Rate 73 Blood Pressure 107/56 L BP Systolic 107 BP Diastolic 56 Pulse Ox 98 05/29/22 02:16 05/29/22 02:16 05/29/22 02:19 Temperature Temperature Source Pulse Rate 77 Blood Pressure 106/55 L BP Systolic 106 BP Diastolic 55 Pulse Ox 98 05/29/22 02:19 05/29/22 02:22 05/29/22 02:22 Temperature Temperature Source Pulse Rate 82 75 Blood Pressure 95/56 L BP Systolic 95 BP Diastolic 56 Pulse Ox 05/29/22 02:21 05/29/22 02:27 05/29/22 02:27 Temperature Temperature Source Pulse Rate 77 Blood Pressure 121/56 H BP Systolic 121 BP Diastolic 56 Pulse Ox 99 05/29/22 02:55 05/29/22 02:55 05/29/22 02:55 Temperature Temperature Source Temporal Pulse Rate 73 Blood Pressure 112/64 BP Systolic 112 BP Diastolic 64 Pulse Ox 05/29/22 02:55 05/29/22 02:55 05/29/22 03:55 Temperature 98.8 F Temperature Source Pulse Rate Blood Pressure 106/56 L BP Systolic 106 BP Diastolic 56 Pulse Ox 97 05/29/22 03:55 05/29/22 03:55 05/29/22 04:38 Temperature Temperature Source Pulse Rate 76 Blood Pressure 119/59 L BP Systolic 119 BP Diastolic 59 Pulse Ox 98 05/29/22 04:38 05/29/22 04:38 05/29/22 04:38 Temperature Temperature Source Pulse Rate 76 77 Blood Pressure BP Systolic BP Diastolic Pulse Ox 95 05/29/22 04:38 05/29/22 04:38 05/29/22 05:40 Temperature 98.4 F Temperature Source Temporal Pulse Rate Blood Pressure 117/68 BP Systolic 117 BP Diastolic 68 Pulse Ox 05/29/22 05:40 05/29/22 05:40 05/29/22 05:40 Temperature Temperature Source Temporal Pulse Rate 85 80 Blood Pressure BP Systolic BP Diastolic Pulse Ox 05/29/22 05:40 05/29/22 05:40 05/29/22 06:28 Temperature 97.9 F Temperature Source Pulse Rate Blood Pressure 109/67 BP Systolic 109 BP Diastolic 67 Pulse Ox 99 05/29/22 06:28 05/29/22 06:28 05/29/22 06:29 Temperature Temperature Source Temporal Pulse Rate 67 81 Blood Pressure BP Systolic BP Diastolic Pulse Ox 05/29/22 06:29 05/29/22 06:28 Temperature 98.8 F Temperature Source Pulse Rate Blood Pressure BP Systolic BP Diastolic Pulse Ox 98 Weight Weight: 179 lb 14.355 oz Body Mass Index (BMI) 31.8 Physical Exam Const alert, oriented x3 and healthy appearing Constitutional Narrative: uncomfortable with contractions HEENT normocephalic and moist oral mucous membranes Head and Scalp: atraumatic Neck full ROM, no lymphadenopathy, supple and thyroid normal General: trachea midline Thyroid: thyroid normal Lymph Lymphatic: no lymphadenopathy noted Chest inspection of chest normal Resp normal respiratory effort Cardio regular rate GI normal to inspection, nondistended, normoactive bowel sounds, soft to palpation and non-tender Inspection: gravid external exam normal Bimanual Exam - Vag & Uterus: uterus non-tender Manual OB Exam: estimated gestational size appropriate, presentation cephalic, dilated, effaced and station Extremity normal to inspection General Extremity: Negative for edema Skin no rashes or lesions noted Neuro deep tendon reflexes 2+ bilaterally Motor Exam: strength 5/5 throughout and clonus absent Psych mental status grossly normal Labs Labs Labs: Blood Type O POSITIVE Antibody Screen NEGATIVE Hct 35.5 % (37-47) L Hgb 12.1 g/dL (12.0-15.0) Obstetrics US Syphilis Total Ab Non-reactive Rubella IgG Antibody Reactive (Nonreactive) Hep Bs Antigen Non-Reactive (Nonreactive) Chlamydia DNA (OPAL) Negative (Negative) Neisseria gonorrhoeae DNA (OPAL) Negative (Negative) HIV 1&2 Antibody Non-Reactive (Nonreactive) Glucose 1 Hr 50 gm 92 mg/dL (70-140) Group B Strep DNA Negative (Negative) Miscellaneous Test Assessment & Plan (1) : QUALIFIERS: Weeks of gestation: 35 weeks Qualified Code(s): Z3A.35 - 35 weeks gestation of COMMENT: GBS Negative, NIPT low risk, neg. AFP negative, nl anatomy, 03/25 nl GCT. (2) Supervision of normal first : QUALIFIERS: Trimester: second trimester Qualified Code(s): Z34.02 - Encounter for supervision of normal first , second trimester COMMENT: [id number], girl, Katy Morley SETH 06/23/22, BF Glory (3) UTI in : COMMENT: Macrobid, culture positive. Repeat urine culture 01/06 neg; [facility] 01/23 and+UTI and Rx macrobid, didn't fill due to cost/[place] sent. rpt culture neg (4) COVID: COMMENT: asa 81mg daily, growth US @ 32 & 36 weeks (5) Mitral valve prolapse: (6) labor: PLAN: Plan admit in labor, epidurla PRN. ampicillin for gbs propylaxis. pit prn
[2022-05-29] MEDS: Oxytocin 15 Units/NS 250ml 15 UNITS/250 ML IV.SOLN 2 UNITS IV (09:31)
[2022-05-29] MEDS: 0.9% Saline Lock 10 ML Syringe IV (18:59)
--- NOTE | 2022-05-29 19:47 | OP.PCM_ITS ---
Assessment & Plan (1) COVID: COMMENT: asa 81mg daily, growth US @ 32 & 36 weeks (2) UTI in : COMMENT: Macrobid, culture positive. Repeat urine culture 01/06 neg; [facility] 01/23 and+UTI and Rx macrobid, didn't fill due to cost/[place] sent. rpt culture neg (3) Supervision of normal first : QUALIFIERS: Trimester: second trimester Qualified Code(s): Z34.02 - Encounter for supervision of normal first , second trimester COMMENT: [id number], girl, Katy Morley SETH 06/23/22, BF Josh (4) : QUALIFIERS: Weeks of gestation: 35 weeks Qualified Code(s): Z3A.35 - 35 weeks gestation of COMMENT: GBS Negative, NIPT low risk, neg. AFP negative, nl anatomy, 03/25 nl GCT. (5) Mitral valve prolapse: (6) labor: (7) Vacuum-assisted vaginal delivery: COMMENT: 36 PTL SM VAVD maternal exhaustion some difficulty with shoulder but also due to poor maternal expulsion efforts dorinda Burns. may have issue with larger baby with vaginal delivery in the future. Maternal Data Information SETH Calculator Estimated Delivery Date Method Current WG Current Estimate 06/23/22 LMP (Certain) 36w 3d Vaginal Delivery Operative Information Date of Procedure: 05/29/22 Pre-Operative Diagnosis: IAL Post-Operative Diagnosis: same Surgery / Procedure Performed: Vacuum Assisted Vaginal Delivery Type of Anesthesia: Epidural Special Medications: none Estimated Blood Loss: 200 Fluids Replaced: crystalloid Findings Description of Procedure: Patient began pushing and after 2 hours there was poor maternal effort and maternal exhaustion and therefore the patient was consented for a vacuum- assisted vaginal delivery. Vacuum was applied at the +2 to +3 station after the patient was consented and with application of 2 minutes and pulls with no pop offs during 1 contraction she delivered the head in the [CINDI] presentation. The head was delivered atraumatically.. The anterior shoulder delivered fairly shortly after however there was some difficulty with overall body delivery mainly due to poor maternal expulsion efforts and Sean was employed to try and help and the rest of the baby's body was manually removed without difficulty. The cord was clamped and cut and gentle traction was applied to the cord and the placenta delivered spontaneously immediately following it was noted to be intact with three-vessel cord. The perineum and vagina were inspected and note dto have a small first degree perineal laceration repaired in the usual fashion. EBL was 200. Patient and infant tolerated delivery well. Presentation: CINDI Amniotic Membrane Rupture Type: Artificial Amniotic Fluid Description: Clear Placental Delivery Description: Spontaneous Placenta Disposition: [facility] Cord Vessel Description: 3 Vessels Cord Entanglement: None Delayed Cord Clamping: Yes Post Vaginal Delivery Medications Given After Delivery: IV Pitocin Episiotomy Description: None Laceration: None Complication Complications: None Procedures Urinary/Genital [id number]: [id number] Vaginal Delivery+PP Care([facility])
[2022-05-29] MEDS: Oxytocin 15 Units/NS 250ml 15 UNITS/250 ML IV.SOLN 83 UNITS IV (19:55)
--- NOTE | 2022-05-29 19:58 | DCINST_ITS ---
Discharge Instructions Diet Discharge Diet: No restrictions Activity Discharge Activity: Return to Normal Activity, May Drive, May Shower and May Take a Tub Bath (in 4 weeks) May resume sexual activity in: 6-8 weeks (after seen by OB provider) Weight Bearing Status: Full weight bearing Lifting Restrictions: none Dressing / Incision Call your doctor if you observe: Fever of 101 or Higher, Inability to urinate, Using more than 1 pad per hour (for more than 2 hours in a row or more), Shortness of breath, Dizziness, Chest pain and - (headache not controlled with tylenol, change in vision) Follow Up Care When: in 6 weeks for visit, call the office to make the appointment. If you had elevated blood pressures call the office to be seen within 1 week. Test Results: Test results from this visit will be discussed in further detail at your follow- up appointment, if applicable. Discharge Plan Admission Admit Date/Time: 05/28/22 23:09 Attending Provider: Sonal Matthew Primary Care Provider: Care Physician,Mary Primary Discharge Orders/Prescriptions Prescriptions: No Action PNV-DHA 27 mg iron-1 mg -300 mg capsule PO Referrals / Follow Up: Care Physician,No Primary [Primary Care Provider] - Disposition Disposition (needs filled in before D/C Order can be placed): Home, Self Care
[2022-05-29 20:01] LABS: Bedside Glucose 73 mg/dL (74-106)
[2022-05-30] VITALS (7 sets, daily range): BP systolic 113–139; BP diastolic 58–89; PULSE 71–85; RESP 16; TEMP 36.3–37.3; O2SAT 96–98
[2022-05-30] MEDS: Naproxen 500 MG Tablet PO ×2 (00:38→15:46)
--- NOTE | 2022-05-30 01:10 | NURSING ---
Patient taken to [facility] via wheelchair with significant other and mother.
[2022-05-30] MEDS: Acetaminophen 500 MG Tablet 1000 MG PO ×3 (02:22→18:23)
--- NOTE | 2022-05-30 06:56 | PCM.PN.OB ---
Subjective Subjective Patient doing well without complaints. Tolerating PO. Ambulating and voiding without difficulty. feeding well. Denies chest pain, shortness of breath, calf pain/swelling, fevers, chills, lightheadedness. had significant swelling in vulva but improving Objective Data Objective Data Vital Signs: Vital Signs Temp Pulse Resp BP Pulse Ox O2 Del Method 97.9 F 75 16 113/65 96 Room Air 05/30/22 04:44 05/30/22 04:44 05/30/22 04:44 05/30/22 04:44 05/30/22 04:44 05/30/22 04:44 Oxygen Delivery Method Room Air Weight: 179 lb 14.355 oz Body Mass Index (BMI) 31.8 Intake & Output: Intake and Output for Last 24 Hours 05/28/22 05/29/22 05/30/22 23:59 23:59 23:59 Intake Total 1000 / 1000 4495.00 / 4495.00 Output Total 2200 / 2200 500 / 500 Balance 1000 / 1000 2295.00 / 2295.00 -500 / -500 Lab / Micro Data Result Diagrams: 05/28/22 20:55 05/28/22 20:55 Labs: Laboratory Results - last 24 hr 05/29/22 18:48: POC Glucose 73 L ROS Constitutional Constitutional: Reports systems reviewed and no addt'l complaints, except as documented Cardiovascular Cardiovascular: Reports systems reviewed and no addt'l complaints, except as documented Respiratory/Chest Respiratory/Chest: Reports systems reviewed and no addt'l complaints, except as documented Gastrointestinal Gastrointestinal: Reports systems reviewed and no addt'l complaints, except as documented Physical Exam Const alert, oriented x3 and no apparent distress HEENT Head and Scalp: atraumatic Resp normal respiratory effort GI soft to palpation and non-tender Bimanual Exam - Vag & Uterus: uterus non-tender Uterus Palpation: uterus fundus firm (below Umbilicus) Assessment & Plan (1) Vacuum-assisted vaginal delivery: COMMENT: 36 PTL SM VAVD maternal exhaustion some difficulty with shoulder but also due to poor maternal expulsion efforts girl Katy. may have issue with larger baby with vaginal delivery in the future. PLAN: Plan s/p PPD # 1 1. routine post delivery care 2. breast feeding- support given 3. rh positive 4. rubella immune
--- NOTE | 2022-05-30 17:46 | CASEMGMT ---
OMAR Note Referral Source: WP intake worker Referral Reason: Age 21 and history of anxiety OMAR met with ALAYNA Webb caring for the patient. She voiced no concerns regarding MOB. OMAR spoke to [facility] Tana who stated that the mom of the MOB being interviewed alone. Per Tana, the MOB's mother said that MOB is feeling she wants to go to her mother's house but the FOB's family wants her to return to their house and MOB is a people pleaser. OMAR met with MOB private in office outside [facility]. Mom: Robyn PNC: Faith NB Due 06/23/22 and delivered at 36 weeks and 3 days Control:I haven't thought about it. OMAR reviewed with MOB the importance of control and that women can get after delivery. Baby: Katy Capmbell : 05/29/[birth year] Weight: 7# 6 ounces per HADLEY Overhauler Helper: Rylie Breast Feeding- MOB reports that she is pumping and it is going slowly. MOB said that her mom said that if she doesn't want to breast feed anymore that is fine but I tried. MOB has no other children Housing: MOB said that is the problem. MOB said that she has been staying with the FOB but going back and forth. MOB said that she would like to go to her MOB's house with the nb but the FOB's family said that if she goes to her mother's house they will get a associate professor of counseling and greg as they renovated the basement for the MOB and nb. MOB said that she had never told the FOB's family to remodel. MOB said that she would like to go to her mother's house with the nb at discharge. OMAR talked to MOB about her responsibility is to the nb and to ensuring the nb's safety. MOB said that at the FOB's house there is dog hair and dog poop and dog pea. MOB said that when she puts the nb on the couch there will be dog hair on the couch and when the nb crawls there may be urine and dog poop as per patient, family does not seed cone picker the dog poop in the home. Patient said that she spends most of the time in [place] with the FOB but does go back and forth. SW advised MOB that her responsibility is to keep the nb safe. MOB said that the FOB's family smoke but smoke outside. HADLEY said that her goal, which has been her goal for a long time, is towork again and rent a apartment on my own. Transportation: HADLEY said that she does not drive currently as she is on seizure precautions. HADLEY said that her mother, grandmother and FOB drive her to appointments and anywhere she needs to go. HADLEY said that she tries to make appointments later in the day as the FOB is in school during the day. Patient can drive but due to being seen by a neurologist she is on seizure precautions. Supports: HADLEY reports that her supports are her mom and grandmother and FOB Education: HADLEY went and graduated from [employer]. She reports she had an IEP for reading comprehension. HADLEY said that her IEP gave her smaller groups and allowed her to be read to. HADLEY said that she was going to college at [employer] to be a circulation representative. HADLEY said that might change now. HADLEY is currently on medical leave from college. Her grades in college are coretta iffy and when asked what that meant patient said c. 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 HADLEY said that she misses working. Agency Involvement: HADLEY reports she has [employer] and [employer]. HADLEY was open to this blog writer making her a referral to [facility]. HADLEY reports no legal or CSB issues. HADLEY said that she went to counseling twice one time at [facility] and another time at an unknown agency in [facility]. HADLEY said that she went to counseling as she struggled in school with bullies. FOB: Josh Son Time Together: 1 year and a few months per MOB Involved with the NB: MOB said that I hope the fob will be involved with the nb. After the interview with HADLEY OMAR noted that RASHEED was visiting the nb in the [facility] and holding the nb. MOB's mother and FOGraham's mother were also present with FOB when he was holding the nb. Employment: RASHEED is in school at [employer] and goes to school for automotive repair. He also works art department head at [employer]. RASHEED has no other children. FOB MH/AOD an DV history: MOB said that she feels safe with the FOB. MOB said that the FOB does smoke weed and it helps him sleep he says but then reported he smokes it during the day. OMAR discussed with MOB that the concern about drug use is that it is illegal and that if anyone around the nb chooses to smoke illegal substance they need to go outside and find a sober individual to care for the child. MOB voiced understanding. Maternal MH History: MOB said that her mother and other people say that she has anxiety. MOB said that she did not understand what anxiety was and SW reviewed with her what anxiety is and patient said well, I guess I got it. Patient said that she worries alot. MOB said that she has never been on medication for anxiety. MOB said that she has not seen her counselor in one year. MOB reports no psych hospitalizations. MOB denied any SI/HI. SW did provide MOB with counseling resources, which are included in resource packet provided to her. MOB educated MOB on Post Depression and Anxiety and psychosis. MOB was educated on shaken baby syndrome and on safe sleeping. MOB denied alcohol, drug or tobacco use. OMAR spent an extensive time with MOB educating her on her responsibility, as a parent, is to ensure the safety of her child. MOB very much wants to protect and care for her child and to ensure her safety. OMAR made on line referral to [facility]. Plan: Home at discharge with referral to [facility]. SW also provided patient with resource packet that included counseling agencies, on line and telephone support for PPD and encouraged patient to follow up with her OB if she has any symptoms of PPD, PPA or psychosis and patient verbalized understanding as she feels very supported by her OB. Tana MONTEIRO
--- NOTE | 2022-05-30 18:12 | CASEMGMT ---
could not see Nb's weight, apgars as the charting is in [facility] charting system in [facility] which this sports writer does not have access to. Tana MONTEIRO
[2022-05-31] MEDS: Acetaminophen 500 MG Tablet 1000 MG PO ×2 (00:24→12:28)
[2022-05-31 03:05] VITALS: BP 118/72; PULSE 64; RESP 16; TEMP 36.4; O2SAT 96
[2022-05-31] MEDS: Naproxen 500 MG Tablet PO (08:18)
--- NOTE | 2022-05-31 08:23 | PCM.PN.OB ---
Subjective Subjective Patient doing well without complaints. Tolerating PO. Ambulating and voiding without difficulty. feeding well. Denies chest pain, shortness of breath, calf pain/swelling, fevers, chills, lightheadedness. Objective Data Objective Data Vital Signs: Vital Signs Temp Pulse Resp BP Pulse Ox O2 Del Method 97.6 F L 64 16 118/72 96 Room Air 05/31/22 03:05 05/31/22 03:05 05/31/22 03:05 05/31/22 03:05 05/31/22 03:05 05/31/22 03:05 Oxygen Delivery Method Room Air Weight: 179 lb 14.355 oz Body Mass Index (BMI) 31.8 Intake & Output: Intake and Output for Last 24 Hours 05/29/22 05/30/22 05/31/22 23:59 23:59 23:59 Intake Total 4495.00 / 4495.00 Output Total 2200 / 2200 1500 / 1500 Balance 2295.00 / 2295.00 -1500 / -1500 Lab / Micro Data Result Diagrams: 05/28/22 20:55 05/28/22 20:55 ROS Constitutional Constitutional: Reports systems reviewed and no addt'l complaints, except as documented Cardiovascular Cardiovascular: Reports systems reviewed and no addt'l complaints, except as documented Respiratory/Chest Respiratory/Chest: Reports systems reviewed and no addt'l complaints, except as documented Gastrointestinal Gastrointestinal: Reports systems reviewed and no addt'l complaints, except as documented Physical Exam Const alert, oriented x3 and no apparent distress HEENT Head and Scalp: atraumatic Resp normal respiratory effort GI soft to palpation and non-tender Bimanual Exam - Vag & Uterus: uterus non-tender Uterus Palpation: uterus fundus firm (below Umbilicus) Assessment & Plan (1) Vacuum-assisted vaginal delivery: COMMENT: 36 PTL SM VAVD maternal exhaustion some difficulty with shoulder but also due to poor maternal expulsion efforts girl Katy. may have issue with larger baby with vaginal delivery in the future. PLAN: Plan s/p PPD # 2 1. routine post delivery care 2. breast feeding- support given 3. rh positive 4. rubella immune
[2022-05-31 09:48] VITALS: BP 110/77; PULSE 71; RESP 16; TEMP 36.6; O2SAT 98
--- NOTE | 2022-06-01 17:45 | CASEMGMT ---
Social Work Labor and Delivery Unit Handoff received from CAYETANO Tan who saw patient/mother of baby (MOB) over the weekend. This administrative underwriter as the usual assigned labor and delivery director of social media marketing during the week also provides social work services to the [facility]. Followed up with MOB and father of baby (FOB) today as baby remains in the SCN. Received update from nursing in the SCN. ?Presented to MOB's room to check on how MOB is doing, as concerns continued over the weekend about MOB having stress from the FOB's mother. Upon arrival MOB's mother was present. ?MOB's mother immediately offered to leave to allow this administrative underwriter private conversation with the MOB. ?FOB initially in nursery but did arrive to the room midway through conversation. ?This administrative underwriter spoke to MOB and FOB together and then again alone with the MOB. MOB and FOB reports to have all necessary supplies to care for the baby, adequate support from family, no concerns with housing/transportation/food. ?MOB discussed privately that the FOB is accepting of the MOB taking the to MOB's mother's home, at least temporarily, a change from the weekend. ?MOB reports initially thought would be okay staying at the FOB's home, but did not realize fully all that entailed to have a baby and how much MOB would want and need the support from her mother. ?Emotional support and supportive encouragement provided to the MOB as MOB processed this information. ?When MOB and FOB were?together, this administrative underwriter completed social history information for the [facility]. ?Both MOB and FOB participated in conversation. ?FOB expressed understanding that MOB intends to take the infant to the MOB's mother's home at time of discharge. ?MOB has voiced she does not intend to keep the baby away from the FOB, just that MOB wants the support of her mother. ?MOB also expressed that FOB is in school himself and won't?always be at home to assist. ?Educated both MOB?and FOB to depression, anxiety and broached psychosis. ?Reviewed some risk factors and signs and symptoms to look for. ?FOB asked this administrative underwriter about irritability?as FOB admits to feeling irritable a lot,?and taking irritability out on the MOB. ?MOB shook her head yes, that this happens.??FOB admits to have ADHD and FOB's mother has Bipolar. This administrative underwriter processed with both parents together, the importance of communication,?allowing space and boundaries with each other, and to be open and honest; to take breaks to cool down but agree to come back later and talk.???This administrative underwriter encouraged both MOB and FOB to seek additional support outside of each other, and the importance/potential benefit of having other people to talk to such as counselors. ?During private conversation with the MOB this administrative underwriter completed [place] depression screen with a score of 8,?falling below the threshold of current depression though MOB did indicate in the affirmative to the anxiety related questions. ? This administrative underwriter reinforced with MOB privately that MOB is the sole mechanical operator of infant?as an unwed mother in the state of [place], and that it is MOB's job to ensure safe decision-making and environment of care for the baby. ?During conversation MOB was talkative, observed MOB to express thoughts and feelings to the FOB. ?MOB held good?eye contact. ?At one point when alone with this administrative underwriter the MOB?did start crying when?talking about anxiety when FOB leaves mad,?recounting past thoughts of suicide?as a younger teen, about being happy to be alive?now, and feeling a sense of purpose now being a mother and having a child. ?Denies any thoughts since early teenage years (Admits to thinking of suicide in the past [overdosing or hanging] but denies any planning or intent. ?Reports it has been a few years since last ideation, and reports to feel baby Katy has given MOB a whole new purpose). Much supportive encouragement, listening and reflection provided. Reviewed grounding technique for anxiety and encourage MOB to consider counseling. ??From what has been described it appears MOB is committed to taking baby to the maternal grandmother's home where MOB feels most comfortable and supported. ? No other services requested or indicated. SW to follow from the [facility]. [facility] referral was made. Resources given on PPD/PPA, counseling, as well as lists for both [facility]. -CAYETANO Travis
--- NOTE | 2022-06-06 13:00 | CASEMGMT ---
Social Work Note SW met with Special Care Nursery RN and care staff regarding discharges concerns for MOB and NB. SW met with MOB and introduced role as [facility] Coping Machine Operator. SW and MOB discussed concerns regarding discharge due to conflict between MOB, FOB and FOB family members. SW provided MOB with emotional support and encouragement to voice her needs for herself and NB. MOB reports wanting FOB to take her to MOB's mother's home and discuss going back to FOB house at a later date and requested SW assist with conversation. SW then met with MOB and FOB to discuss discharge plan. SW encouraged MOB to voice what she wants to do. MOB states she wants FOB to take her to her mom's and then have visitors come to MOB's mother's home. FOB initially reports he wants MOB to be at his home with NB but was receptive towards MOB and agreed to transport MOB and NB to MOB's mother's home. SW met with MOB's mother outside to discuss discharge plan. MOB's mother voiced concerns regarding FOB's home and living conditions as well as FOB's ability to emotionally and financially support NB and MOB. MOB's mother reports the plan was for her to follow MOB and FOB to ensure MOB is taken to her home. SW then met with MOB alone to verify she would still prefer MOB's mother to follow them home. MOB reports she still wants her mother to follow them without making it obvious. MOB reports she trusts FOB but feels more confident if her mother is able to follow. SW then informed MOB's mother MOB agreed for her to follow them as FOB is to drop MOB and NB off at her home. OMAR met with care team to review plan, explaining FOB is transporting MOB and NB to MOB's mother's home. OMAR met with MOB multiple times prior to discharge to ensure MOB was comfortable with discharge plan. MOB voiced no other concerns and explained she was voicing her concerns to FOB and he was being respectful and receptive. Plan: FOB transport NB and MOB to MOB's mother's home. Bella Campos MSW, TAWNYA
== END 2022-05-31 12:35 | disposition home or self-care (01) | DRG 560 ==
LOC: WP 23:10 → WPOUT 05-29 09:59
PROVIDERS: Admitting Provider Obstetrics & Gynecology; Visit Provider Obstetrics & Gynecology
DX: O60.14X0 Preterm labor third trimester with preterm delivery third trimester, not applicable or unspecified (principal); Z37.0 Single live birth; O99.42 Diseases of the circulatory system complicating childbirth; I34.1 Nonrheumatic mitral (valve) prolapse; O70.0 First degree perineal laceration during delivery; O75.81 Maternal exhaustion complicating labor and delivery; Z3A.36 36 weeks gestation of pregnancy; Z79.82 Long term (current) use of aspirin; Z86.16 Personal history of COVID-19
CPT/HCPCS: 59025; 59050; 76815; 81001; 82565; 82570; 82962; 84112; 84156; 84450; 84460; 84550; 85027; 86850; 86900; 86901; 87081; 87653; 99221; J7120; A4216; G0378; J0290; J2405

== ENCOUNTER → 2023-07-12 | Outpatient (CLI) | payer OTHER, SELFPAY | END | disposition home or self-care (01) | PROVIDERS: Visit Provider Obstetrics & Gynecology | DX: Z11.3 Encounter for screening for infections with a predominantly sexual mode of transmission (principal) | CPT/HCPCS: 87491; 87591 ==

== ENCOUNTER → 2023-11-03 | Outpatient (CLI) | payer MEDICAID, SELFPAY | END | disposition home or self-care (01) | PROVIDERS: Referring Provider Nurse Practitioner Family | DX: N89.8 Other specified noninflammatory disorders of vagina (principal) | CPT/HCPCS: 87070; 87205; 87491; 87591 ==

== ENCOUNTER → 2023-11-10 | Outpatient (CLI) | payer MEDICAID, SELFPAY ==
[2023-11-16 11:59] LABS: Chlamydia By Nucleic Acid AMP Negative (Negative); Gonococcus By Nucleic Acid AMP Negative (Negative)
== END | disposition home or self-care (01) ==
PROVIDERS: Referring Provider Nurse Practitioner Family; Visit Provider Nurse Practitioner Family
DX: N89.8 Other specified noninflammatory disorders of vagina (principal)
CPT/HCPCS: 87491; 87591

== ENCOUNTER → 2023-11-16 | Outpatient (CLI) | payer MEDICAID, SELFPAY ==
--- NOTE | 2023-11-16 12:00 | US_ITS ---
STUDY: ULTRASOUND OF THE FEMALE PELVIS - COMPLETE REASON FOR EXAM: Female, 23 years old. Bilateral pelvic pain LMP: Unknown. TECHNIQUE: Transabdominal and Transvaginal TECHNICAL QUALITY: Adequate. COMPARISON: None. FINDINGS: The uterus is anteverted and is tilted to the left side of the pelvis. The uterus measures 6.8 cm x 5.4 cm x 5.6 cm. Normal uterine cervix. The endometrium measures 10 mm in thickness, and is hyperechoic. There is no demonstrated endometrial mass. There is no demonstrated myometrial mass. I.U.D. - The patient does not have an I.U.D. The right ovary is visualized. The right ovary measures 3.2 cm x 2.6 cm x 2.3 cm. There is no right ovarian cyst or ovarian mass. There is no visualized right adnexal mass or complex lesion. There is normal arterial and normal venous vascularity. The left ovary is visualized. The left ovary measures 2.7 cm x 2.3 cm x 2.3 cm. There is no left ovarian cyst or ovarian mass. There is no visualized left adnexal mass or complex lesion. There is normal arterial and normal venous vascularity. There is no fluid in the cul-de-sac. The pre void volume of the bladder was 597 ml. US/Pelvic w/ Transvaginal IMPRESSION: Normal female pelvis. Electronically Signed: Jonh Tatum MD at 15:26 EDT ,
== END | disposition home or self-care (01) ==
LOC: OPUS 11:58 → US 12:03
PROVIDERS: Referring Provider Nurse Practitioner Family; Visit Provider Nurse Practitioner Family
DX: R10.2 Pelvic and perineal pain (principal)
CPT/HCPCS: 76830; 76856

== ENCOUNTER → 2023-12-03 | Outpatient (CLI) | payer MEDICAID, SELFPAY | END | disposition home or self-care (01) | LOC: LABSPEC 14:25 | PROVIDERS: Referring Provider Advanced Practice Midwife; Visit Provider Advanced Practice Midwife | DX: N89.8 Other specified noninflammatory disorders of vagina (principal) | CPT/HCPCS: 87070; 87077; 87186; 87205 ==

== ENCOUNTER → 2024-02-29 | Outpatient (CLI) | payer MEDICAID, SELFPAY | END | disposition home or self-care (01) | LOC: LABSPEC 15:25 | PROVIDERS: Referring Provider Nurse Practitioner Family; Visit Provider Nurse Practitioner Family | DX: N89.8 Other specified noninflammatory disorders of vagina (principal) | CPT/HCPCS: 87070; 87077; 87205 ==